=== PATIENT | female | born 1990 ===

== ENCOUNTER 2018-03-06 12:15 | Inpatient (IN) | payer OTHER ==
[~2018-03-06] VITALS: Ht 160 cm; Wt 64.9 kg
[2018-03-16] MEDS ORDERED: PRENATAL TABLE1 EAC1 PO (10:37)
[2018-03-19] MEDS ORDERED: PREPLUS CA-FE1 EACH PO (08:11)
[2018-03-19] MEDS ORDERED: IBUPROFEN600 MG PO (08:12)
== END 2018-03-19 11:58 | disposition home or self-care (01) | DRG 766 ==
LOC: OB/GYN 03-16 09:09 → LDR 03-16 09:09 → O/R 03-16 12:57 → OB/GYN 03-16 15:14 → LDR 03-27 12:15
PROVIDERS: Obstetrics & Gynecology
PROC: 4A033R1 Measurement of Arterial Saturation, Peripheral, Percutaneous Approach (ICD-10-PCS; 2018-03-16)
PROC: 4A1HXCZ Monitoring of Products of Conception, Cardiac Rate, External Approach (ICD-10-PCS; 2018-03-16)
PROC: 10D00Z1 Extraction of Products of Conception, Low, Open Approach (ICD-10-PCS; principal; 2018-03-16 12:00)
DX: O69.81X0 Labor and delivery complicated by cord around neck, without compression, not applicable or unspecified (principal); O99.824 Streptococcus B carrier state complicating childbirth; O76 Abnormality in fetal heart rate and rhythm complicating labor and delivery; Z3A.38 38 weeks gestation of pregnancy; Z37.0 Single live birth